=== PATIENT | female | born 1995 | race Hispanic/Latino ===

== ENCOUNTER 2020-07-23 10:42 | Inpatient (IN) | payer MEDICAID, OTHER ==
[2020-07-23] MEDS ORDERED: hydrALAZINE 20 MG/ML VIAL SLOW IVP PRN ×2 (10:54→12:25)
[2020-07-23 11:18] VITALS: BMI 28.3
--- NOTE | 2020-07-23 11:29 | ULT ---
US Biophysical Profile History: Oligohydramnios Comparison: None. Findings: Real-time grayscale, color and spectral analysis of the gravid uterus was performed. The biophysical profile score measures 6/8 scoring 2 for tone, 2 for breathing, 2 for fet al movements and 0 for amniotic fluid. Amniotic fluid index: 4.0 cm. The placenta is anterior/fundal. presentation is vertex. Impression: Biophysical profile score of 6/8 scoring 0 for amniotic fluid.
[2020-07-23 11:57] LABS: Amnisure Test No Membranes Rupture (No Rupture)
[2020-07-23 11:58] LABS: Amnisure Internal Control QC ACCEPTABLE (ACCEPTABLE)
[2020-07-23] MEDS ORDERED: Promethazine HCl 25 MG/ML VIAL IM PRN (12:25)
[2020-07-23] MEDS ORDERED: Acetaminophen 500 MG TAB PO PRN (12:25)
[2020-07-23] MEDS ORDERED: Ondansetron PF 4 MG/2 ML Vial IVP PRN (12:25)
--- NOTE | 2020-07-23 12:28 | PDOC.FPROB ---
FMR OB H&P: HPI - History of Present Illness Chief Complaint: Oligohydramnios in clinic Indentification: 24yo G1 @ 33wks by LMP/9.3wk sono. History of Present Illness: Patient is a 24 yo F @ 33.o wks who presents 2/2 low ROSA on clinic BPP. is complicated by class B pregestational diabetes. Patient reports that over the past week she has been having increased discharge. She has had episodes of clear fluid leakage that have soaked through her pants. She also reports increased white and green discharge over the same time period. She denies contractions and vaginal bleeding. She endorses movement. Primary Care Physician: BRETT Franklin FMR OB H&P: Current - Care : 1 Para: 0 Gestational age: 33.0 Due date: 09/10/2020 Dating Criteria: LMP/9.3wk sono - OB Labs Blood type: O RH: positive Antibody Screen: negative HIV: negative RPR: negative HepBsAg: negative Rubella: immune Gonorrhea: negative Chlamydia: negative Pap Smear: 01/17 NILM A1c: 5.2% 07/2020 GBS: unknown - Additional Ultrasound Additional: Hadlock 26.9% 07/18/2020 FMR OB H&P: History - Past Medical History PMH: Pre gestational Diabetes class B At goal - TELECOMM[employer] History [employer]LECOMM[employer]S PROFESSION[employer] History: pap smear NILM 01/2020 - Surgical History Sx History: none FMR OB H&P: Medications - Current Home Medications: Medication Instructions Recorded Confirmed Type Aspirin [Ecotrin] 81 mg PO DAILY 07/23/20 07/23/20 History Pnv No.95/Ferrous Fum/Folic AC 1 tab PO DAILY 07/23/20 07/23/20 History [ Caplet] Allergies/Adverse Reactions: Allergies Allergy/AdvReac Type Severity Reaction Status Date / Time No Known Allergies Allergy Verified 07/23/20 11:12 FMR OB H&P: ROS - Review of Systems General: denies: fever/chills, recent trauma Cardiovascular: denies: edema Respiratory: denies: cough, shortness of breath Gastrointestinal: reports: abdominal pain. denies: nausea, vomiting, diarrhea Genitourinary (Female): reports: incontinence, vaginal discharge. denies: vaginal pain, vaginal bleeding, contractions Musculoskeletal: denies: pain, stiffness Neurologic: denies: numbness, headache Integumentary: denies: rash, lesions Hematologic/Lymphatic: denies: prolonged or excessive bleeding, enlarged lymph nodes Psychological: denies: depression, anxiety FMR OB H&P: Vital Signs - Heart Tones Baseline: 150 Variability: moderate Acceleration: present Deceleration: absent Category: category 1 Portia contractions every: absent FMR OB H&P: Physical Exam - Physical Exam General: NAD, awake, alert and oriented HEENT: normocephalic and atraumatic, EOMI Heart: no edema General: no respiratory distress Abdomen: soft, gravid, non-tender Musculoskeletal: normal gait and station, FROM in all four extremities - Pelvic Exam Vulva: normal hair distribution, appropriate alyce stage, no masses, no lesions, no blood, normal rugae Cervix: no masses, no blood Deviation from normal: Copious amounts of white discharge with green tint SVE: c/t/h FMR OB H&P: Results - Labs Lab results: Laboratory Results - last 24 hr 07/23/20 11:36 Amnio Swab Test No Membranes Rupture FMR OB H&P: A/P Disposition: Will admit inpatient for oligohydramnios Discussion: Date/Time: 07/23/20 1224 sIUP @ 33.0 weeks - PNC care, PCP Rigoberto - history of low ROSA - declined genetic testing - growth U/S wnl, most recent showing Hadlock 27% - Was followed by M who signed off - NST qShift - obtain VP3, GC/CT given exam findings with discharge Oligohydramnios - Patient's history suspicious for ROM - sterile speculum exam shows no fluid leaking from cervix although hard to visualize with discharge, amniosure negative - BPP in clinic shows ROSA 4, MVP >2 cm - Repeat BPP - If ROSA is low, consider admission with steroid injection, IVF infusion, and possible antibiotics - Monitoring as above - repeat BPP in AM Pregestational DM - Continue home regimen of lispro 8 units with each meal, 35 u basal qhs - Most recent A1c 5.2 - ACHs Accuchecks This H&P was discussed with Dr. Betancourt and Dr. Fay who agree with the above documentation and plan. Addendum - Attending - Attending Attestation Date/Time: 07/23/20 1522 I personally evaluated the patient and discussed the management with Dr. Manzo. I agree with the History, Examination, Assessment and Plan documented above with any addition or exceptions noted below. 24 y.o. at 33.0 wks EGA /c Class B DM here for referral from [facility] for oligohydranios, discovered on mBPP performed there this a.m. and confirmed here with full BPP. No evidence of PPROM but vaginal d/c sent for analysis. Will admit for IVF and reeval ROSA in a.m., if rises to >5 cm, may be able to d/c with frequent ROSA eval's. If less, keep and reeval after steroids in. Will go ahead with 24 hour IV steroid prep in anticipation for likely .
[2020-07-23] MEDS: Betamet Acet/Betamet Na Ph 30 MG/5 ML VIAL IM SCH (12:45)
[2020-07-23] MEDS ORDERED: Dextrose 50% Abboject 50 ML SYRINGE SLOW IVP PRN (13:12)
[2020-07-23] MEDS ORDERED: Dextrose 5% in Water 1,000 ML IV PRN (13:12)
[2020-07-23] MEDS: HumaLOG 300 UNITS/3 ML VIAL SC SCH ×2 (14:55→19:16)
[2020-07-23] MEDS: Insulin Glargine 35 UNITS in Pre-Filled Syringe SC SCH (21:49)
--- NOTE | 2020-07-24 07:38 | PDOC.OBAPN ---
FMR OB AP PN: Sub - Interval History Hospital Day: 1 Chief Complaint: Sent from clinic for low ROSA Indentification: 24yo @ 33.1 wks (CHARO 09/10/20) Interval History: Doing well this morning. FMR OB AP PN: Obj - Maternal Vital signs: BP: 114/73 HR: 69 Wt: 75kg - Heart Tones Baseline: 130 Variability: moderate Acceleration: present Deceleration: absent FMR OB AP PN: Exam - Physical Exam General: NAD, awake, alert and oriented HEENT: normocephalic and atraumatic, MMM, grossly normal vision, grossly normal hearing Neck: supple, trachea midline Breast: symmetric Heart: RRR, normal S1/S2, no murmurs/rubs/gallops General: CTAB, no respiratory distress Abdomen: soft, gravid Musculoskeletal: normal gait and station, pulses present Skin: no rash, good tugor Lymphatic: no unusual bruising or bleeding, no purpura Psychiatric: intact recent and remote memory, good judgement and insight, normal mood and affect FMR OB AP PN: Data - Labs Lab results: Laboratory Results - last 24 hr 07/23/20 07/23/20 07/23/20 11:36 15:00 19:21 POC Glucose 85 105 H Amnio Swab Test No Membranes Rupture FMR OB AP PN: A/P - Problem List (1) Oligohydramnios antepartum Current Visit: Yes Status: Acute Code(s): O41.00X0 - OLIGOHYDRAMNIOS, UNSP TRIMESTER, NOT APPLICABLE OR UNSP (2) Pregestational diabetes mellitus, modified White class B Current Visit: Yes Status: Acute Code(s): O24.319 - UNSP PRE-EXISTING DIABETES IN , UNSP TRIMESTER (3) Toney gestation with first Current Visit: Yes Status: Acute Code(s): Z34.90 - ENCNTR FOR SUPRVSN OF NORMAL , UNSP, UNSP TRIMESTER Disposition: 24yo G1 admitted for evaluation of oligohydramnios. sIUP @ 33.1 weeks - PNC PCP Rigoberto - declined genetic testing - growth U/S wnl, most recent showing Hadlock 27% - Was followed by MFM who signed off Discharge - VP3 negative. - GC/CT pending Oligohydramnios - Sterile speculum exam showed no pooling, amnisure negative - BPP 07/23 showed an ROSA of 4. - Admitted for IV fluid hydration, steroids for lung maturity and repeat BPP this morning with umbilical artery dopplers. - Continuous monitoring. - Repeat amnisure today Pregestational DM - Continue home regimen of lispro 8 units with each meal, 35 u basal qhs - Most recent A1c 5.2 - ACHs Accuchecks - CC diet Discussion: Date/Time: 07/24/20 7136 This plan was discussed with Dr. Jacome who agrees with the above documentation and plan unless otherwise stated below. Signature: Hussain FISHMAN PGY2 Addendum - Attending - Attending Attestation Date/Time: 07/24/20 1225 I personally evaluated the patient and discussed the management with Dr. Fay I agree with the History, Examination, Assessment and Plan documented above with any addition or exceptions noted below. 24 yo female at 33.1 wks by LMP/9.3 wk sono CHARO: 09/10/20 PCP: Rigoberto [facility] patient Patient reports she is doing well. Denies LOF, vaginal bleeding, and vaginal discharge. +FM. Tolerating PO well. VS reviewed. NST reactive. BPP 6/8 (2 off for ROSA) No contractions 1. sIUP: IOB labs reviewed. NILM. STI screening negative. Level II sono reviewed. 3T negative. s/p Tdap. 2. Pregestational DM?: Dx during 1T screening due to family hx and metabolic syndrome. A1c was 6.4%. Home monitoring was initiated and found to be NOT at GOAL for . No proteinuria. No LVH. Level II sono WNL. Grossly normal ECHO. Tx: Diet --> metformin --> insulin A1c = 6.4% --> 5.5% --> 5.4% --> 5.2% --> 5.1% Concern insulin is too high due to low A1c values. Patient denies hypoglycemia episodes. Current insulin: Lantus 35 qhs. Lispro 8 TID. Glucose at goal during hospitalization and on steroid course. No adjustments made to insulin to cover steroids. 20.0 wks Hadlock 22%, MVP 4.4 cm 24.0 wks Hadlock 16%, MVP 4.5 cm 32.2 wks Hadlock 27%, ROSA 6.36 cm 3. Oligohydramnios: Unsure etiology at this time. ROSA < 2 cm. BPP /8. Placed on continuous monitoring. No decels. No contractions. Amnisure neg on 07/23. Negative speculum exam. Grade 1 to 2 placenta. Fundal location. Stomach and bladder full on bedside sono. UA Doppler at 50th%tile. Repeat amnisure today after recumbent positioning. Patient reports having to change undergarments the day before her 32.2 wk sono but has not noticed leakage otherwise. Denies sensation of loss of fluid. Has noticed increased discharge. Workup negative thus far. BMZ course started. Last dose today at 1400. Change to inpatient. Continue monitoring for at least 24 hours. Repeat bedside sono during AM rounds. Bi-weekly BPP. Ok to d/c for home monitoring if ROSA increases to 2 cm. Will delivery at 36 wks if able to d/c to home. Otherwise delivery based on day to day findings. 4. fam hx of DM 5. Metabolic syndrome 6. URI in 1T 7. Hx of STI in the past 8. TB risk: Needs to follow up with HD. Dispo: Continue monitoring with q 4 hour assessments today. 2nd dose BMZ at 1400. Change to inpatient. Bedside sono in AM. Continue IVFs. Repeat Amnisure. Trend glucose fasting and 2 hours pp. Markell
[2020-07-24] MEDS: Lactated Ringer's 1,000 ML IV SCH ×4 (07:51→18:47)
--- NOTE | 2020-07-24 08:55 | ULT ---
LIMITED OBSTETRICAL ULTRASOUND FOR BIOPHYSICAL PROFILE INDICATION: Oligohydramnios TECHNIQUE: Grayscale, M-mode Doppler, color Doppler and spectral Doppler images were obtained. Biophy sical profile was submitted by the electromechanical technician. Imaging is focused on the clinical indication. COMPARISON: Prior exam dated July 23, 2020 GESTATION: Number of gestations: Single. Presentation: Cephalic. heart rate: 137 bpm. Placental location: Fundal Previa: No evidence for previa. Cervical length: 2.93 cm without evidence of funneling ROSA: 2.8 cm. Biophysical profile: tone: 2 out of 2. breathin out of 2 movements: 2 out of 2 Amniotic fluid level: 0 out of 2. Spectral Doppler images were obtained of the umbilical artery at the level of the placenta, mid cord and insertion. At the center, the peak systolic flow was 24.9 cm/s with a pulsatility index of 0.74 and a resistive index of 0.51. The systolic diastolic ratio is 2.06. Mid cord the peak systol ic velocity was 47.4 cm/s. The pulsatility index was 0.87 with a resistive index of 0.61 and a systolic diastolic ratio of 2.56. At the insertion, the systolic velocity was 65.8 cm/s with a pulsatility index of 0.84, resistive index of 0.59 and a systolic diastolic ratio of 2.45 IMPRESSION: 1. Biophysical profile of 6 out of 8. 2. Oligohydramnios. 3. Umbilical artery Doppler appears within normal limits for estimated gestational age of 33 weeks an d 0 days.
[2020-07-24] MEDS ORDERED: Prenatal Vitamin 1 TAB PO SCH (09:00)
[2020-07-24] MEDS: HumaLOG 300 UNITS/3 ML VIAL SC SCH ×2 (10:11→14:37)
[2020-07-24 10:17] LABS: Hemoglobin A1c 5.1 % (4.0-6.0)
[2020-07-24 10:39] LABS: ALT (SGPT) 15 U/L (8-55); AST (SGOT) 14 U/L (5-34); Albumin 3.2 g/dL (3.5-5.0); Alkaline Phosphatase 127 U/L (40-110); Anion Gap 11 mmol/L (10-20); BUN (Urea Nitrogen) 10 mg/dL (7.0-18.7); Bilirubin, Total 0.2 mg/dL (0.2-1.2); Calc. Creatinine Clearance 167 mL/min (70-130); Calcium 9.2 mg/dL (7.8-10.44); Carbon Dioxide 23 mmol/L (22-29); Chloride 107 mmol/L (98-107); Estimated GFR-MDRD Greater than 90; Globulin 3.1 g/dL (2.4-3.5); Glucose 110 mg/dL (70-105); Potassium 3.8 mmol/L (3.5-5.1); Protein, Total 6.3 g/dL (6.0-8.3); Sodium 137 mmol/L (136-145)
--- NOTE | 2020-07-24 11:26 | PDOC.EVN ---
Event Note - Event Note Event Note: Bedside sono done on rounds did not reveal a DVP > 2cm. Discussed ultrasound results with patient. Umbilical artery doppler within 50th percentile. Will get A1c and CMP today. Repeat amnisure after patient has been on bedrest for >3 hours. She will receive 2nd dose of steroids today at 1400.
[2020-07-24] MEDS ORDERED: HumaLOG 300 UNITS/3 ML VIAL SC PRN ×2 (12:38)
[2020-07-24 12:43] LABS: Amnisure Test No Membranes Rupture (No Rupture)
[2020-07-24 12:44] LABS: Amnisure Internal Control QC ACCEPTABLE (ACCEPTABLE)
[2020-07-24 12:49] VITALS: BP 113/65; TEMP 98.2
[2020-07-24 13:27] LABS: SARS-CoV-2 MS2 Positive; SARS-CoV-2 N Gene Negative; SARS-CoV-2 S Gene Negative; SARS-CoV-2 by NAA Not Detected (NotDetected); SARS-CoV-2 orf1ab Negative
[2020-07-24] MEDS: Betamet Acet/Betamet Na Ph 30 MG/5 ML VIAL IM SCH (15:00)
--- NOTE | 2020-07-24 15:28 | PDOC.BPN ---
- Brief Progress Note Patient reports no acute concerns at this time and that she is feeling baby move as normal. Her most recent vitals included BP of 120/68 with HR of 79. UOP is 900 mL. We will obtain 2 hr pp accucheck-patient just finished eating lunch. ACHS check before lunch was 106. We will continue home insulin regimen at this time and do 2 hr pp and AM fasting accuchecks with goal <150. If >150, will do mild sliding scale as ordered. Will continue to monitor and reevaluate with changes.
--- NOTE | 2020-07-24 19:41 | PDOC.OBAPN ---
FMR OB AP PN: Sub - Interval History Chief Complaint: Sent from clinic for low ROSA Indentification: 24yo @ 33.1 wks (CHARO 09/10/20) Interval History: Doing well, resting comfortably in bed FMR OB AP PN: Obj - Maternal Vital signs: BP: 120/68 HR: 79 RR: 18 Tmax: 98.5 - Urine output I&O: I: s/p 4L IVF UO: 1550 between 1600 and 1900 - Heart Tones Baseline: 140 Variability: moderate Acceleration: present Deceleration: variable FMR OB AP PN: Exam - Physical Exam General: NAD HEENT: grossly normal vision, grossly normal hearing General: no respiratory distress Abdomen: gravid, non-tender Neurological: cranial nerves II through XII intact, sensation to pain,touch and proprioception grossly normal FMR OB AP PN: Data - Labs Lab results: Laboratory Results - last 24 hr 07/23/20 07/24/20 07/24/20 12:40 09:12 09:56 Sodium 137 Potassium 3.8 Chloride 107 Carbon Dioxide 23 Anion Gap 11 BUN 10 Creatinine 0.62 Estimated GFR (MDRD) Greater than 90 Glucose 110 H POC Glucose 96 Hemoglobin A1c Calcium 9.2 Total Bilirubin 0.2 AST 14 ALT 15 Alkaline Phosphatase 127 H Serum Total Protein 6.3 Albumin 3.2 L Globulin 3.1 Albumin/Globulin Ratio 1.0 L Amnio Swab Test SARS-CoV-2 (PCR) Not Detected 07/24/20 07/24/20 07/24/20 09:56 12:25 12:26 Sodium Potassium Chloride Carbon Dioxide Anion Gap BUN Creatinine Estimated GFR (MDRD) Glucose POC Glucose 142 H Hemoglobin A1c 5.1 Calcium Total Bilirubin AST ALT Alkaline Phosphatase Serum Total Protein Albumin Globulin Albumin/Globulin Ratio Amnio Swab Test No Membranes Rupture SARS-CoV-2 (PCR) 07/24/20 07/24/20 14:35 17:11 Sodium Potassium Chloride Carbon Dioxide Anion Gap BUN Creatinine Estimated GFR (MDRD) Glucose POC Glucose 107 H 114 H Hemoglobin A1c Calcium Total Bilirubin AST ALT Alkaline Phosphatase Serum Total Protein Albumin Globulin Albumin/Globulin Ratio Amnio Swab Test SARS-CoV-2 (PCR) FMR OB AP PN: A/P Discussion: 24 yo @ 33.1 weeks admitted for evaluation of oligohydramnios. sIUP - s/p steroids x2 - declined genetic testing - FHT: baseline of 140, moderate variability, 2 variable decels Oligohydramnios - amnisure negative x2 - s/p 4 L IV fluids - ROSA of 6.68, MVP 3.52 - will stop fluids and monitoring at this time, encourage PO intake - ROSA ordered for tomorrow morning Pregestational DM - 2 Hr PP sugar after dinner tonight - Will continue home regimen with goal sugar <150 - Most recent A1c 5.2 PCP: Rigoberto [facility]
[2020-07-24 21:29] LABS: Chlamydia by PCR Not Detected (NotDetected); GC by PCR Not Detected (NotDetected)
[2020-07-24] MEDS: Insulin Glargine 35 UNITS in Pre-Filled Syringe SC SCH (22:18)
[2020-07-25] MEDS: HumaLOG 300 UNITS/3 ML VIAL SC SCH ×2 (06:08→08:30)
[2020-07-25 06:18] LABS: #Monocytes 0.3 thou/uL (0.11-0.59); #Neutrophils 13.8 thou/uL (1.40-6.50); %Basophils 0.1 % (0.0-1.0); %Eosinophils 0.1 % (0.0-10.0); %Lymphocytes 12.6 % (21.0-51.0); %Monocytes 1.9 % (0.0-10.0); %Neutrophils 85.4 % (42.0-75.0); Hemoglobin 11.9 g/dL (12.0-16.0); Mean Corpuscular HGB CONC 32.6 g/dL (32.0-36.0); Mean Corpuscular Hemoglobin 29.5 pg (27.0-31.0); Mean Corpuscular Volume 90.6 fL (78.0-98.0); Platelet Count 183 thou/uL (130-400); RBC Distribution Width 12.7 % (11.5-14.5); Red Blood Cell (RBC) Count 4.02 mill/uL (4.20-5.40); White Blood Cell (WBC) Count 16.1 thou/uL (4.8-10.8)
--- NOTE | 2020-07-25 06:31 | PDOC.OBAPN ---
FMR OB AP PN: Sub - Interval History Hospital Day: 2 Chief Complaint: Low ROSA Indentification: 24yo G1 @ 33.2wks EGA by LMP/9.3wk sono FMR OB AP PN: Obj - Maternal Vital signs: BP: 112/69 HR: 62 Resp: 18 Temp: 98.5F FMR OB AP PN: Exam - Physical Exam General: NAD, awake, alert and oriented HEENT: normocephalic and atraumatic, MMM, grossly normal vision, grossly normal hearing Neck: supple, trachea midline Heart: RRR, normal S1/S2 General: CTAB, no respiratory distress, good air movement Abdomen: soft, gravid, non-tender Musculoskeletal: normal gait and station Skin: no rash, good tugor Lymphatic: no unusual bruising or bleeding Psychiatric: intact recent and remote memory, good judgement and insight FMR OB AP PN: Data - Labs Lab results: Laboratory Results - last 24 hr 07/23/20 07/23/20 07/24/20 12:15 12:40 09:12 WBC RBC Hgb Hct MCV MCH MCHC RDW Plt Count MPV Neutrophils % Lymphocytes % Monocytes % Eosinophils % Basophils % Neutrophils # Lymphocytes # Monocytes # Eosinophils # Basophils # Sodium Potassium Chloride Carbon Dioxide Anion Gap BUN Creatinine Estimated GFR (MDRD) Glucose POC Glucose 96 Hemoglobin A1c Calcium Total Bilirubin AST ALT Alkaline Phosphatase Serum Total Protein Albumin Globulin Albumin/Globulin Ratio Amnio Swab Test Chlamydia DNA (PCR) Not Detected Chlamydia/GC Spec Info SARS-CoV-2 (PCR) Not Detected N gonorrhoeae DNA (PCR) Not Detected 07/24/20 07/24/20 07/24/20 09:56 09:56 12:25 WBC RBC Hgb Hct MCV MCH MCHC RDW Plt Count MPV Neutrophils % Lymphocytes % Monocytes % Eosinophils % Basophils % Neutrophils # Lymphocytes # Monocytes # Eosinophils # Basophils # Sodium 137 Potassium 3.8 Chloride 107 Carbon Dioxide 23 Anion Gap 11 BUN 10 Creatinine 0.62 Estimated GFR (MDRD) Greater than 90 Glucose 110 H POC Glucose 142 H Hemoglobin A1c 5.1 Calcium 9.2 Total Bilirubin 0.2 AST 14 ALT 15 Alkaline Phosphatase 127 H Serum Total Protein 6.3 Albumin 3.2 L Globulin 3.1 Albumin/Globulin Ratio 1.0 L Amnio Swab Test Chlamydia DNA (PCR) Chlamydia/GC Spec Info SARS-CoV-2 (PCR) N gonorrhoeae DNA (PCR) 07/24/20 07/24/20 07/24/20 12:26 14:35 17:11 WBC RBC Hgb Hct MCV MCH MCHC RDW Plt Count MPV Neutrophils % Lymphocytes % Monocytes % Eosinophils % Basophils % Neutrophils # Lymphocytes # Monocytes # Eosinophils # Basophils # Sodium Potassium Chloride Carbon Dioxide Anion Gap BUN Creatinine Estimated GFR (MDRD) Glucose POC Glucose 107 H 114 H Hemoglobin A1c Calcium Total Bilirubin AST ALT Alkaline Phosphatase Serum Total Protein Albumin Globulin Albumin/Globulin Ratio Amnio Swab Test No Membranes Rupture Chlamydia DNA (PCR) Chlamydia/GC Spec Info SARS-CoV-2 (PCR) N gonorrhoeae DNA (PCR) 07/24/20 07/25/20 20:50 05:51 WBC 16.1 H RBC 4.02 L Hgb 11.9 L Hct 36.4 MCV 90.6 MCH 29.5 MCHC 32.6 RDW 12.7 Plt Count 183 MPV 11.0 H Neutrophils % 85.4 H Lymphocytes % 12.6 L Monocytes % 1.9 Eosinophils % 0.1 Basophils % 0.1 Neutrophils # 13.8 H Lymphocytes # 2.0 Monocytes # 0.3 Eosinophils # 0.0 Basophils # 0.0 Sodium Potassium Chloride Carbon Dioxide Anion Gap BUN Creatinine Estimated GFR (MDRD) Glucose POC Glucose 218 H Hemoglobin A1c Calcium Total Bilirubin AST ALT Alkaline Phosphatase Serum Total Protein Albumin Globulin Albumin/Globulin Ratio Amnio Swab Test Chlamydia DNA (PCR) Chlamydia/GC Spec Info SARS-CoV-2 (PCR) N gonorrhoeae DNA (PCR) FMR OB AP PN: A/P - Problem List (1) Oligohydramnios antepartum Status: Acute Code(s): O41.00X0 - OLIGOHYDRAMNIOS, UNSP TRIMESTER, NOT APPLICABLE OR UNSP (2) Pregestational diabetes mellitus, modified White class B Status: Acute Code(s): O24.319 - UNSP PRE-EXISTING DIABETES IN , UNSP TRIMESTER (3) Toney gestation with first Status: Acute Code(s): Z34.90 - ENCNTR FOR SUPRVSN OF NORMAL , UNSP, UNSP TRIMESTER Disposition: 24yo G1 admitted for evaluation of oligohydramnios. sIUP @ 33.2 weeks - [facility] PCP Rigoberto - declined genetic testing - growth U/S wnl, most recent showing Hadlock 27% - Was followed by MFM who signed off Discharge - VP3 negative. - GC/CT negative Oligohydramnios - Sterile speculum exam showed no pooling, amnisure negative x2 - BPP 07/23 showed an ROSA of 4. Bedside sono 07/24 PM showed an ROSA of 6.68, MVP 3.52. She was taken off of IV fluids. - S/P 2 doses of betamethasone. - Plan for delivery @ 36 weeks, unless indicated sooner. - We will monitor ROSA today while off fluids and consider d/c home. Pregestational DM - Continue home regimen of lispro 8 units with each meal, 35 u basal qhs, will likely need to adjust this regimen down once the steroids wear off d/t normal glucose readings while on steroids (which should elevate glucose) - A1c 5.1% - ACHs Accuchecks - CC diet - D/c home with plan to f/u in [facility] on Thursday and MFM early next week Discussion: Date/Time: 07/25/20 0658 Hussain FISHMAN PGY2 This H&P was discussed with Dr. Jacome who agree with the above documentation and plan. Addendum - Attending - Attending Attestation Date/Time: 07/25/20 1213 I personally evaluated the patient and discussed the management with Dr. Fay I agree with the History, Examination, Assessment and Plan documented above with any addition or exceptions noted below. 24 yo female at 33.2 wks admitted for oligohydramnios, idiopathic. HD#2 CHARO: 09/10/20 PCP: Rigoberto [facility] Patient doing well. Reports movement but feels moving less than normal. NST reactive. ROSA improved to 5.2 cm (based on images and measurements from radiology). No LOF, ctx, VB. Discussed likely cause related to hypoglycemia and hydration. Compared patient's glucometer to hospital. Patient's monitor was falsely elevated which would be consistent with hypoglycemia as indicated by low A1c of 5%. Patient has also not required any correction to glucose readings while on steroid burst (218 was elevated to due nursing staff not provided short acting prior to meal). Findings and etiology discussed with patient and FOB. Questions answered. Ok to d/c to home. Follow up with [facility] on Thursday at 1000 to adjust insulin dose to less than previous. Joe will be s/p day #5 from BMZ dose. MFM referral placed and to have appointment scheduled for next week. Will need weekly testing with ROSA measurement. Q 2 wk growth. UA Dopplers if FGR. If remains, oligo delivery at 36 to 37 wks. If not, delivery at 38 to 39 wks. FKC twice daily. ER precautions discussed. Amnisure negative x2. No evidence of ROM throughout stay. GC/Ct/VP3 negative. Markell
[2020-07-25 06:40] LABS: ALT (SGPT) 13 U/L (8-55); AST (SGOT) 13 U/L (5-34); Albumin 3.1 g/dL (3.5-5.0); Alkaline Phosphatase 115 U/L (40-110); Anion Gap 14 mmol/L (10-20); BUN (Urea Nitrogen) 14 mg/dL (7.0-18.7); Bilirubin, Total 0.2 mg/dL (0.2-1.2); Calc. Creatinine Clearance 164 mL/min (70-130); Calcium 8.7 mg/dL (7.8-10.44); Carbon Dioxide 21 mmol/L (22-29); Chloride 108 mmol/L (98-107); Estimated GFR-MDRD Greater than 90; Globulin 2.9 g/dL (2.4-3.5); Glucose 121 mg/dL (70-105); Sodium 139 mmol/L (136-145)
--- NOTE | 2020-07-25 10:33 | ULT ---
ULTRASOUND OBSTETRICAL LIMITD: DATE: 07/05/2020. HISTORY: A 24-year-old female with oligohydramnios. Evaluate ROSA. FINDINGS: ROSA: 4.5 cm heart rate: 152 b.p.m. position: Vertex. Placenta: Posterior. heart rate: 152 b.p.m. bladder, 4-chamber heart, 3-vessel cord, and cord insertion are demonstrated. IMPRESSION: 1. Oligohydramnios in 3rd trimester. 2. ROSA 4.5 cm. POS: [facility]
--- NOTE | 2020-07-25 17:15 | ULT ---
LIMITED OBSTETRICAL ULTRASOUND FOR BIOPHYSICAL PROFILE INDICATION: Oligohydramnios TECHNIQUE: Grayscale, M-mode Doppler, color Doppler and spectral Doppler images were obtained. Biophy sical profile was submitted by the biomass plant technician. Imaging is focused on the clinical indication. COMPARISON: Prior exam dated July 23, 2020 GESTATION: Number of gestations: Single. Presentation: Cephalic. heart rate: 137 bpm. Placental location: Fundal Previa: No evidence for previa. Cervical length: 2.93 cm without evidence of funneling ORSA: 2.8 cm. Biophysical profile: tone: 2 out of 2. breathin out of 2 movements: 2 out of 2 Amniotic fluid level: 0 out of 2. Spectral Doppler images were obtained of the umbilical artery at the level of the placenta, mid cord and insertion. At the center, the peak systolic flow was 24.9 cm/s with a pulsatility index of 0.74 and a resistive index of 0.51. The systolic diastolic ratio is 2.06. Mid cord the peak systol ic velocity was 47.4 cm/s. The pulsatility index was 0.87 with a resistive index of 0.61 and a systolic diastolic ratio of 2.56. At the insertion, the systolic velocity was 65.8 cm/s with a pulsatility index of 0.84, resistive index of 0.59 and a systolic diastolic ratio of 2.45 IMPRESSION: 1. Biophysical profile of 6 out of 8. 2. Oligohydramnios. 3. Umbilical artery Doppler appears within normal limits for estimated gestational age of 33 weeks an d 0 days. Transcribed Date/Time: 07/25/2020 5:15 PM
== END 2020-07-25 10:07 | disposition home or self-care (01) | DRG 832 ==
LOC: L&D/OP 10:42 → L&D 12:26
PROVIDERS: ADMIT Family Medicine; ATTEND Family Medicine
DX: O41.03X0 Oligohydramnios, third trimester, not applicable or unspecified (principal); O24.313 Unspecified pre-existing diabetes mellitus in pregnancy, third trimester; Z3A.33 33 weeks gestation of pregnancy; Z79.82 Long term (current) use of aspirin; E11.649 Type 2 diabetes mellitus with hypoglycemia without coma; Z20.828 Contact with and (suspected) exposure to other viral communicable diseases
CPT/HCPCS: 36415; 36416; 76815; 76819; 80053; 83036; 84112; 85025; 87480; 87491; 87510; 87591; 87635; 87660; 93975; 99285; J0702; J1815; U0003

== ENCOUNTER 2020-07-29 00:23 | Day surgery (SDC) | payer MEDICAID ==
[2020-07-29 00:51] VITALS: BP 125/77; TEMP 98.9; BMI 30.9
--- NOTE | 2020-07-29 01:00 | PDOC.FPROB ---
FMR OB H&P: HPI - History of Present Illness Chief Complaint: decreased movement History of Present Illness: Pt is a 24yo @ 33.6 wks by LMP/9.3wk sono who presents for evaluation of decreased FM. She states that when she was laying in bed tonight she could feel the baby, but she seemed to be moving less than normal. She denies any LOF, vaginal bleeding or pain, contractions. C/o mild lower abdominal pain that comes and goes. No fever, N/V, diarrhea. Eating and drinking as normal. Has a hx of pregestational diabetes treated with insulin. Her FBG today was 100. She complains of burning with urination. She has close f/u outpatient due to hx of oligohydramnios, with recent hospitalization. Was seen outpatient yesterday and had US, results unknown. Primary Care Physician: JYOTSNA Franklin FMR OB H&P: Current - Care : 1 Para: 0 Gestational age: 33.6 Due date: 09/10/2020 Dating Criteria: LMP/9.3 wk sono Course/Complications: pregestational diabetes - OB Labs Blood type: O RH: positive Antibody Screen: negative HIV: negative RPR: negative HepBsAg: negative Rubella: immune Gonorrhea: negative Chlamydia: negative Pap Smear: 01/17 NILM A1c: 5.2% 07/2020 GBS: unknown - Additional Ultrasound Additional: Hadlock 26.9% 07/18/2020 FMR OB H&P: History - Past Medical History PMH: pregestational diabetes, class B at goal - Surgical History Sx History: none - Social History Social History: no T/A/D FMR OB H&P: Medications - Current Home Medications: Medication Instructions Recorded Confirmed Type Aspirin [Ecotrin Low Strength] 81 mg PO DAILY 07/23/20 07/29/20 History Pnv No.95/Ferrous Fum/Folic AC 1 tab PO DAILY 07/23/20 07/29/20 History [ Caplet] HumaLOG [HumaLOG Vial] 8 units SC AC vial 07/25/20 07/29/20 Rx Insulin Glargine [Lantus Vial] 25 units SC HS 07/29/20 07/29/20 History Allergies/Adverse Reactions: Allergies Allergy/AdvReac Type Severity Reaction Status Date / Time No Known Allergies Allergy Verified 07/29/20 00:38 FMR OB H&P: ROS - Review of Systems General: reports: fatigue. denies: fever/chills Eyes: denies: vision changes, scotomas ENT: denies: nasal congestion, rhinorrhea, sore throat Cardiovascular: denies: chest pain, palpitation, edema Respiratory: denies: cough, congestion, shortness of breath Gastrointestinal: denies: abdominal pain, nausea, vomiting, diarrhea Genitourinary (Female): reports: dysuria. denies: vaginal pain, vaginal bleeding, contractions Musculoskeletal: denies: pain, tenderness Neurologic: denies: numbness, headache Integumentary: denies: itching Breast: denies: pain/tenderness Endocrine: denies: polydipsia, polyuria Hematologic/Lymphatic: denies: prolonged or excessive bleeding FMR OB H&P: Vital Signs - Maternal Vital signs: Vital Signs - First Documented Temp Pulse Resp BP 98.9 F 70 18 125/77 07/29/20 00:35 07/29/20 00:35 07/29/20 00:35 07/29/20 00:35 - Heart Tones Baseline: 140 Variability: moderate Acceleration: present Deceleration: absent Category: category 1 FMR OB H&P: Physical Exam - Physical Exam General: NAD, awake, alert and oriented HEENT: normocephalic and atraumatic, no scleral icterus, grossly normal vision, grossly normal hearing Neck: supple, FROM Heart: RRR, normal S1/S2, no murmurs/rubs/gallops, pulses present, no edema General: CTAB, no respiratory distress, no wheezing Abdomen: soft, gravid, bowel sound present Deviation from normal: mild tenderness to palpation of lower abdomen Musculoskeletal: normal gait and station, pulses present Neurological: no focal deficit Skin: capillary refill <2 seconds, no jaundice Psychiatric: intact recent and remote memory, normal mood and affect FMR OB H&P: Results - Labs Lab results: UA: normal FMR OB H&P: A/P Discussion: Date/Time: 07/29/20 0100 #sIUP -c/o decreased FM, likely due to a sleep cycle; NST reactive -FHT: Cat 1 140/mod tamiko/+accels, no decels -c/o dysuria, UA normal -discharged home, continue routine outpatient f/u #hx of oligohydramnios -released from hospital on 07/25, evaluated, d/c home with close outpatient f/u -s/p 2 doses betamethasone -continue routine outpatient f/u #pregestational diabetes -most recent A1c 5.2 -continue home meds and accuchecks This H&P was discussed with Dr. Franklin and Dr. Perera who agree with the above documentation and plan.
[2020-07-29] MEDS ORDERED: hydrALAZINE 20 MG/ML VIAL SLOW IVP PRN (01:37)
--- NOTE | 2020-07-29 02:16 | PDOC.BPN ---
- Brief Progress Note Encounter Date: 07/29/20 Encounter Time: 02:10 I have seen the patient at bedside and I have reviewed the case with Dr Ogden. WE will check UA for possible UTI. NST is reactive. She has a HX of "low fluid" on sono but last sono was yesterday at the [facility] and was cleared for continued F/U
[2020-07-29 02:31] LABS: Bacteria/HPF None Seen HPF (None Seen); Bilirubin Negative (Negative); Blood, Urine Negative (Negative); Clarity Clear (Clear); Glucose, Urine (Dipstick) Normal (Negative); Ketone, Urine Negative (Negative); Leukocyte Negative Leu/uL (Negative); Nitrite Negative (Negative); Protein, Urine (Dipstick) Negative (Neg-Trace); RBC/HPF None Seen HPF (0-3); Squamous Epithelial None Seen HPF (0-3); Urobilinogen Normal mg/dL (Less than 2); WBC/HPF None Seen HPF (0-3)
[2020-07-29 02:36] LABS: Urine Culture Reflex No No
== END 2020-07-29 02:55 | disposition home or self-care (01) ==
LOC: L&D/OP 00:23
PROVIDERS: ATTEND Obstetrics & Gynecology
DX: O36.8130 Decreased fetal movements, third trimester, not applicable or unspecified (principal); O24.313 Unspecified pre-existing diabetes mellitus in pregnancy, third trimester; E11.9 Type 2 diabetes mellitus without complications; Z3A.33 33 weeks gestation of pregnancy; Z79.4 Long term (current) use of insulin; Z79.82 Long term (current) use of aspirin
CPT/HCPCS: 51701; 81001; 99283

== ENCOUNTER 2020-07-30 17:51 | Inpatient (IN) | payer MEDICAID, OTHER ==
[~2020-07-30 17:51] MED LIST: Penicillin G Potassium 5 MILL.UNITS in Sodium Chloride 0.9% 100 ML IVPB SCH
[2020-07-30] MEDS ORDERED: NS / Oxytocin 40 units/1000ml 1,000 ML IV PRN (18:28)
[2020-07-30] MEDS ORDERED: Lidocaine 1% (PF) 30 ML VIAL SC PRN (18:28)
[2020-07-30] MEDS ORDERED: Promethazine HCl 25 MG/ML VIAL IM PRN (18:28)
[2020-07-30] MEDS ORDERED: Ondansetron PF 4 MG/2 ML Vial IVP PRN (18:28)
[2020-07-30] MEDS ORDERED: NS w/ Oxytocin 10 units 500 ML IV SCH (18:30)
[2020-07-30] MEDS: Lactated Ringer's 1,000 ML IV SCH (18:49)
--- NOTE | 2020-07-30 18:49 | PDOC.FPROB ---
FMR OB H&P: HPI - History of Present Illness Chief Complaint: mIOL History of Present Illness: Pt is a 24 yo @ 34.0 wks by LMP/9.3 wk sono who presents for mIOL due to oligohydramnios and IUGR. She was seen by MFM today for routine f/u of oligo and was found to have IUGR, hadlock 3%. Was seen in our hospital from 07/23-07/25 for evaluation of oligohydramnios. BPP on 07/23 showed an ROSA of 4. Bedside sono 07/24 PM showed an ROSA of 6.68, DVP 3.52. She was given 2 doses of betamethasone. Tod ay she states she can feel baby moving. Denies LOF, VB, ctx or pain. She has a hx of pregestational DM, class B, controlled on insulin. Primary Care Physician: JYOTSNA Franklin FMR OB H&P: Current - Care : 1 Para: 0 Gestational age: 34.0 wks Due date: 09/10/20 Dating Criteria: LMP/ 9.3wk sono Course/Complications: pregestational diabetes, class B - OB Labs Blood type: O RH: positive Antibody Screen: negative HIV: negative RPR: negative HepBsAg: negative Rubella: immune Gonorrhea: negative Chlamydia: negative A1c: 5.2% on 07/2020 GBS: unknown - Additional Ultrasound Additional: Hadlock 27% on 07/18/20 FMR OB H&P: History - Past Medical History PMH: pregestational diabetes, class B - OB History OB History: G1PO - Surgical History Sx History: none - Social History Social History: no T/A/D - Family History Family History: parents- DM FMR OB H&P: Medications - Current Home Medications: Medication Instructions Recorded Confirmed Type Aspirin [Ecotrin Low Strength] 81 mg PO DAILY 07/23/20 07/29/20 History Pnv No.95/Ferrous Fum/Folic AC 1 tab PO DAILY 07/23/20 07/29/20 History [ Caplet] HumaLOG [HumaLOG Vial] 8 units SC AC vial 07/25/20 07/29/20 Rx Insulin Glargine [Lantus Vial] 25 units SC HS 09/27/20 09/27/20 History Allergies/Adverse Reactions: Allergies Allergy/AdvReac Type Severity Reaction Status Date / Time No Known Allergies Allergy Verified 07/30/20 20:22 FMR OB H&P: ROS - Review of Systems General: denies: fever/chills Eyes: denies: vision changes, scotomas ENT: denies: nasal congestion, rhinorrhea Cardiovascular: denies: chest pain, edema Respiratory: denies: cough, congestion Gastrointestinal: reports: abdominal pain. denies: nausea, vomiting, diarrhea Genitourinary (Female): denies: vaginal discharge, vaginal pain, vaginal bleeding, contractions Musculoskeletal: denies: pain, tenderness Neurologic: denies: syncope, headache Integumentary: denies: itching, rash Endocrine: denies: polydipsia, polyuria Hematologic/Lymphatic: denies: prolonged or excessive bleeding FMR OB H&P: Vital Signs - Heart Tones Baseline: 140 Variability: moderate Acceleration: present Deceleration: absent Category: category 1 FMR OB H&P: Physical Exam - Physical Exam General: NAD, awake, alert and oriented HEENT: normocephalic and atraumatic, no scleral icterus, grossly normal vision, grossly normal hearing Neck: supple, FROM Heart: RRR, normal S1/S2, no murmurs/rubs/gallops General: CTAB, no respiratory distress Abdomen: soft, gravid, bowel sound present Musculoskeletal: normal gait and station, pulses present Neurological: no focal deficit Skin: no rash, capillary refill <2 seconds, no jaundice Lymphatic: no unusual bruising or bleeding Psychiatric: intact recent and remote memory, normal mood and affect - Pelvic Exam Vulva: normal hair distribution, no discharge, no blood SVE: 1-50/-1 Adler score: 4 Membranes: intact FMR OB H&P: A/P Discussion: Date/Time: 07/30/20 1849 #mIOL 2/2 oligohydramnios and IUGR -history of low ROSA, MFM today found IUGR- hadlock 3%, recommended IOL -SVE 1-50/-1, posterior, firm, Adler of 4 -will start cytotec, recheck in 3-4 hours -patient is unsure if she would like an epidural -cephalic on bedside US #, 34wks -recent hospitalization given 2 doses betamethasone -GBS unknown, will give GBS ppx #sIUP -FHT: Cat 1 140/mod tamiko/+accels, no decels; no ctx -NST qShift -LR@125ml/hr #pregestational diabetes -most recent A1c 5.2, takes 8u insulin with meals and 25u lantus at bedtime -will continue home meds -accucheck q4h latent labor, q1h active labor Code: Full PCP: JYOTSNA Franklin IVF: LR @ 125ml/hr Diet: NPO w/ ice chips Dispo: Admit to L&D, mIOL, LOS>48 hrs. This H&P was discussed with Dr. Franklin and Dr. Betancourt who agree with the above documentation and plan.
[2020-07-30 19:08] LABS: Hemoglobin 13.9 g/dL (12.0-16.0); Mean Corpuscular HGB CONC 34.3 g/dL (32.0-36.0); Mean Corpuscular Hemoglobin 30.5 pg (27.0-31.0); Mean Corpuscular Volume 88.7 fL (78.0-98.0); Mean Platelet Volume 11.5 fL (7.4-10.4); Platelet Count 179 thou/uL (130-400); RBC Distribution Width 12.5 % (11.5-14.5); Red Blood Cell (RBC) Count 4.56 mill/uL (4.20-5.40); White Blood Cell (WBC) Count 10.7 thou/uL (4.8-10.8)
[2020-07-30] MEDS ORDERED: Dextrose 50% Abboject 50 ML SYRINGE SLOW IVP PRN (19:36)
[2020-07-30] MEDS ORDERED: Dextrose 5% in Water 1,000 ML IV PRN (19:36)
[2020-07-30] MEDS ORDERED: HumaLOG 300 UNITS/3 ML VIAL SC SCH (19:45)
[2020-07-30 19:49] LABS: HBSAg Index 0.19 S/CO (0-0.99); Hep B Surf Ag Non-Reactive S/CO (NonReactive); Syphilis Antibody Nonreactive (Nonreactive); Syphilis Antibody Index 0.03 S/CO (<1.00 Non-Reactive)
[2020-07-30 20:36] VITALS: BMI 28.8
[2020-07-30] MEDS: Misoprostol 100 MCG TAB VAG SCH (21:22)
[2020-07-30] MEDS ORDERED: Insulin Glargine 25 UNITS in Pre-Filled Syringe 1 EACH SC SCH (22:30)
[2020-07-31] MEDS: Penicillin G 2.5 MILL.units 2.5 MILL.UNITS in Premix Bag 1 BAG IVPB SCH ×6 (01:37→22:46)
--- NOTE | 2020-07-31 02:41 | PDOC.LDPN ---
Labor & Delivery Progress Note - Subjective Subjective: comfortable - Objective Vital signs reviewed and normal: yes General: NAD SVE: 12/27/-2 FHT: category 1 [place] contractions every: 3-5 min Procedures: cook balloon placed -: #mIOL 2/ oligohydramnios and IUGR -history of low ROSA, MFM today found IUGR- hadlock 3%, recommended IOL -SVE 12/27/-2, anterior, soft -Cook balloon placed w/ 40ml in uterine and vaginal balloon. R/B/A discussed before placement. Pt tolerated placement, will monitor FHT 30 min, if continues to be Cat 1, will add 40ml to each balloon #, 34wks -recent hospitalization given 2 doses betamethasone -GBS unknown, will give GBS ppx #sIUP -FHT: Cat 1 140/mod tamiko/+accels, no decels; no ctx -NST qShift -LR@125ml/hr #pregestational diabetes -most recent A1c 5.2, takes 8u insulin with meals and 25u lantus at bedtime -will continue home meds -accucheck q4h latent labor, q1h active labor
[2020-07-31] MEDS: Butorphanol Tartrate 1 MG/ML VIAL SLOW IVP PRN ×2 (03:39→19:39)
[2020-07-31] MEDS: Lactated Ringer's 1,000 ML IV SCH ×2 (04:48→18:38)
[2020-07-31] MEDS: Misoprostol 100 MCG TAB VAG SCH ×5 (08:09→22:21)
--- NOTE | 2020-07-31 11:16 | PDOC.LDPN ---
Labor & Delivery Progress Note - Subjective Subjective: comfortable (resting comfortably) - Objective Vital signs reviewed and normal: yes (BPs 150s/90s) General: NAD, resting, breathing through contractions Uterine fundus: non tender FHT: category 1, variability present [place] contractions every: 1-4min Procedures: balloon placed at 0200 on 07/31 AROM: clear fluid Resuscitative measures: maternal IV fluids Plan: continue plan of care -: #mIOL 2/2 oligohydramnios and IUGR History of low ROSA, MFM found IUGR- hadlock 3%, recommended IOL on 07/30 - SVE 12/27/-2, anterior, soft @ 0230 - Cook balloon placed @ 0230 w/ 80ml in uterine and vaginal balloon. R/B/A discussed before placement. - Started pitocin around 0830, continues to be cat 1 strip, CTX q 1-4min. - Will continue to monitor BPs - Does not desire epidural at this time, but would like to think about it #, 34wks - recent hospitalization given 2 doses betamethasone - GBS unknown, will give GBS ppx #sIUP - FHT: Cat 1 140/mod tamiko/+accels, no decels; no ctx - NST qShift - LR@125ml/hr #Pregestational diabetes - most recent A1c 5.2, takes 8u insulin with meals and 25u lantus at bedtime - will continue home meds - accuchecks changed to q2hr now that pit has been started. Sugars have been well controlled. No hypoglycemic episodes. Case discussed with Dr. Verduzco
[2020-07-31 15:03] LABS: SARS-CoV-2 MS2 Positive; SARS-CoV-2 N Gene Negative; SARS-CoV-2 S Gene Negative; SARS-CoV-2 by NAA Not Detected (NotDetected); SARS-CoV-2 orf1ab Negative
--- NOTE | 2020-07-31 15:19 | PDOC.LDPN ---
Labor & Delivery Progress Note - Subjective Subjective: comfortable - Objective Vital signs reviewed and normal: yes General: NAD Uterine fundus: non tender SVE: 4-/-2 FHT: category 1 [place] contractions every: ~q4 mins, irregular Plan: continue plan of care, pitocin for augmentation -: #mIOL / oligohydramnios and IUGR History of low ROSA, MFM found IUGR- hadlock 3%, recommended IOL on 07/30 - SVE 4-/-2, soft @ 1500, 12/27/2, anterior, soft @ 0230 - Cook balloon removed @ 1500 - Pitocin started @ 0230, now @ 6, cat 1 strip, irregular ctx - Will get labs for preE, (CMP, urine, CBC, uric acid) - Does not desire epidural at this time, but would like to think about it #, 34wks - recent hospitalization given 2 doses betamethasone - GBS unknown, will give GBS ppx #sIUP - FHT: Cat 1 140/mod tamiko/+accels, no decels; irregular ctx - NST qShift - LR@125ml/hr #Pregestational diabetes - most recent A1c 5.2, takes 8u insulin with meals and 25u lantus at bedtime - will continue home meds - accuchecks changed to q2hr now that pit has been started. Sugars have been well controlled. No hypoglycemic episodes. Case discussed with Dr. Verduzco
[2020-07-31 15:47] LABS: #Basophils 0.1 thou/uL (0.0-0.2); #Lymphocytes 3.5 thou/uL (1.20-3.40); #Monocytes 0.6 thou/uL (0.11-0.59); #Neutrophils 11.1 thou/uL (1.40-6.50); %Basophils 0.6 % (0.0-1.0); %Eosinophils 0.2 % (0.0-10.0); %Monocytes 3.6 % (0.0-10.0); %Neutrophils 72.5 % (42.0-75.0); Mean Corpuscular HGB CONC 33.7 g/dL (32.0-36.0); Mean Corpuscular Hemoglobin 30.1 pg (27.0-31.0); Mean Corpuscular Volume 89.4 fL (78.0-98.0); Mean Platelet Volume 11.4 fL (7.4-10.4); Platelet Count 178 thou/uL (130-400); RBC Distribution Width 12.4 % (11.5-14.5); Red Blood Cell (RBC) Count 4.64 mill/uL (4.20-5.40); White Blood Cell (WBC) Count 15.2 thou/uL (4.8-10.8)
[2020-07-31 16:08] LABS: ALT (SGPT) 22 U/L (8-55); AST (SGOT) 15 U/L (5-34); Albumin 3.3 g/dL (3.5-5.0); Alkaline Phosphatase 150 U/L (40-110); Anion Gap 15 mmol/L (10-20); BUN (Urea Nitrogen) 10 mg/dL (7.0-18.7); Bilirubin, Total 0.4 mg/dL (0.2-1.2); Calc. Creatinine Clearance 159 mL/min (70-130); Calcium 9.3 mg/dL (7.8-10.44); Carbon Dioxide 22 mmol/L (22-29); Chloride 105 mmol/L (98-107); Estimated GFR-MDRD Greater than 90; Globulin 3.4 g/dL (2.4-3.5); Glucose 78 mg/dL (70-105); Potassium 4.1 mmol/L (3.5-5.1); Protein, Total 6.7 g/dL (6.0-8.3); Sodium 138 mmol/L (136-145); Uric Acid 5.6 mg/dL (2.6-6.0)
--- NOTE | 2020-07-31 17:33 | PDOC.LDPN ---
Labor & Delivery Progress Note - Subjective Subjective: comfortable - Objective Vital signs reviewed and normal: yes General: NAD SVE: 550/-1 FHT: category 1 [place] contractions every: q2min AROM: clear fluid -: A/P: 1) IUP@ 34.1 weeks undergoing induction for IUGR, oligo and pregestational DM- Pitocin @8mu; progressing. AROM- clear fluids. Will plan to place IUPC. 2) Pregestational DM- BG downtrending; clear liquids given; will recheck in 1 hour; if still low, may need to change IVF to include D5. 3) Elevated BP- Pre-eclampsia labs drawn; normal platelets and LFTs; Urine prot/Cr pending. Continue to monitor. No severe range pressures or symptoms.
[2020-07-31] MEDS ORDERED: Fentanyl 4 mcg/Bup 0.1% Cadd 100 ML ONE (19:28)
--- NOTE | 2020-07-31 19:42 | PDOC.LDPN ---
Labor & Delivery Progress Note - Subjective Subjective: painful contractions - Objective Abnormal vital signs: one severe pressure of 167/105 followed by 156/103 less than 15 min later General: breathing through contractions Dilation: 6 Effacement: 50% Station: -1 FHT: category 1, early decelerations, variability present [place] contractions every: 1-3 min AROM: clear fluid -: sIUP - mIOL 2/2 oligohydramnios and IUGR - History of low ROSA, MFM found IUGR- hadlock 3%, recommended IOL on 07/30 - SVE 12/27/-2, anterior, soft @ 0230; 4-/-2, soft @ 1500; /1 @ 1715, AROM; /1 @ 1915 - FHT: 140, cat 1, early decels, moderate variability - Epidural ordered, will give stadol in interim - will likely place IUPC after epidural Elevated BP readings without diagnosis of Pre E or gestational HTN - pre-e labs ordered; CBC and CMP normal; urine pending - one severe range pressure of 167/105 @ 1910 with next reading of 156/103 15 minutes later; first severe, will monitor and treat if needed - denies RODRIGUEZ, chest pain, RUQ pain, SOB, blurry vision , 34wks - recent hospitalization given 2 doses betamethasone - GBS unknown; s/p GBS ppx Pregestational diabetes - most recent A1c 5.2, takes 8u insulin with meals and 25u lantus at bedtime; home meds DC'd due to normal blood glucose - accuchecks changed to q2hr now that pit has been started. Sugars have been well controlled. Last sugar of - will continue to monitor
[2020-07-31] MEDS ORDERED: Bupivacaine 0.5% 10 ML VIAL ONE (19:55)
[2020-07-31] MEDS ORDERED: Fentanyl 100 MCG/2 ML VIAL ONE (19:55)
[2020-07-31] MEDS ORDERED: Lactated Ringer's 500 ML IV PRN (20:51)
[2020-07-31] MEDS ORDERED: EPHEDRINE 25 MG/5 ML SYRINGE SLOW IVP PRN (20:51)
[2020-07-31] MEDS ORDERED: Promethazine HCl 25 MG/ML VIAL IM PRN (20:51)
[2020-07-31] MEDS ORDERED: diphenhydrAMINE 50 MG/ML VIAL IVP PRN (20:51)
[2020-07-31] MEDS ORDERED: Naloxone HCl 0.4 mg/ml Vial IVP PRN ×2 (20:51)
[2020-07-31] MEDS ORDERED: Ondansetron PF 4 MG/2 ML Vial IVP PRN (20:51)
[2020-07-31] MEDS ORDERED: Acetaminophen 325 MG TAB PO PRN (20:51)
[2020-07-31] MEDS ORDERED: Fentanyl 100 MCG/2 ML VIAL I-THECAL SCH (20:51)
[2020-07-31] MEDS ORDERED: Communication Order-Pharmacy FS SCH (21:00)
[2020-07-31] MEDS ORDERED: Insulin Glargine 25 UNITS in Pre-Filled Syringe 1 EACH SC SCH (21:00)
[2020-07-31] MEDS ORDERED: Fentanyl 4 mcg/Bupivacaine 0.1% Cassette 100 ML EPIDURAL SCH (21:00)
--- NOTE | 2020-07-31 21:15 | PDOC.LDPN ---
Labor & Delivery Progress Note - Subjective Subjective: comfortable - Objective Abnormal vital signs: Hypertensive 141/91, no more severes General: NAD, resting Dilation: 6 Effacement: 75% Station: -1 FHT: category 1, early decelerations, variability present [place] contractions every: 2 min AROM: clear fluid IUPC placed: yes -: sIUP - mIOL 2/ oligohydramnios and IUGR - History of low ROSA, MFM found IUGR- hadlock 3%, recommended IOL on 07/30 - SVE 12/27/-2, anterior, soft @ 0230; 4-/-2, soft @ 1500; /-1 @ 1715, AROM; /-1 @ 1914; /-1 @ 2049 - IUPC placed at - MVUs of 235 - FHT: 140, cat 1, early decels, moderate variability - Epidural ~ 2000 - pit at 8 Gestational HTN - pre-e labs ordered and normal (Plts: 178; AST/ALT: 15/; Pr:Cr ratio: <0.29) - one severe range pressure of 167/105 @ 1910 with next reading of 156/103 15 minutes later; no other severes at this time - pressures since last check in 130-140s/80-90s - denies RODRIGUEZ, chest pain, RUQ pain, SOB, blurry vision , 34wks - recent hospitalization given 2 doses betamethasone - GBS unknown; s/p GBS ppx Pregestational diabetes - most recent A1c 5.2, takes 8u insulin with meals and 25u lantus at bedtime; home meds DC'd due to normal blood glucose - accuchecks changed to q2hr now that pit has been started. Sugars have been well controlled. Last sugar of 90 - will continue to monitor
[2020-07-31] MEDS ORDERED: Insulin Glargine 12 UNITS in Pre-Filled Syringe 1 EACH SC SCH (22:00)
[2020-07-31] MEDS ORDERED: Dextrose 5%-Lactated Ringers 1,000 ML IV SCH (22:45)
[2020-07-31] MEDS ORDERED: Labetalol HCl 100 MG/20 ML VIAL ONE (23:08)
[2020-07-31] MEDS ORDERED: Magnesium Sulfate 20 gm/500 ml 20 GM/500 ML BAG ONE (23:10)
[2020-07-31] MEDS ORDERED: Labetalol HCl 100 MG/20 ML VIAL SLOW IVP PRN (23:11)
[2020-07-31] MEDS ORDERED: Calcium Gluc 4.6 MEQ/10 ML (100 MG/ML) SLOW IVP PRN (23:12)
--- NOTE | 2020-07-31 23:17 | PDOC.LDPN ---
Labor & Delivery Progress Note - Subjective Subjective: comfortable - Objective Abnormal vital signs: Severes of 175/94 and 169/90 General: NAD, resting Dilation: Complete Effacement: 100% Station: 1+ FHT: category 1, early decelerations, variability present [place] contractions every: 2 min AROM: clear fluid IUPC placed: yes -: sIUP - mIOL 2/ oligohydramnios and IUGR - History of low ROSA, MFM found IUGR- hadlock 3%, recommended IOL on 07/30 - SVE 12/27/-2, anterior, soft @ 0230; 4-/-2, soft @ 1500; /-1 @ 1715, AROM; /-1 @ 1915; /-1 @ 2049; Complete @ 2300 - IUPC placed at 2014 - FHT: 135, cat 1, early decels, moderate variability - Epidural ~ 2000 - pit at 8 Pre-E - pre-e labs ordered and normal (Plts: 178; AST/ALT: 15/22; Pr:Cr ratio: <0.29) - > 2 severe range pressures; latest pressures of 175/94 and 169/90 - will give 20 mg of labetalol and start on mag - denies RODRIGUEZ, chest pain, RUQ pain, SOB, blurry vision , 34wks - recent hospitalization given 2 doses betamethasone - GBS unknown; s/p GBS ppx pregestational Dm: - home meds have not been DC'd; scheduled to receive home 25 units of Lantus at bedtime - last blood sugar of 63, started on D5LR @ 125 - due to low/normal sugars today and last sugar being 77, given half of home dose (12 units) while on D5LR - Q1hr checks
[2020-07-31] MEDS: Magnesium Sulfate 20 gm/500 ml 20 GM/500 ML BAG IVPB SCH (23:21)
[2020-07-31] MEDS ORDERED: Magnesium Sulfate 20 GM/WATER 500 ML BAG IVPB SCH (23:30)
--- NOTE | 2020-08-01 00:40 | PDOC.OPDEL ---
OB Operative/Delivery Note Delivery Dr/Surgeon: Neha/ Pre-Delivery Diagnosis: medically indicated induction Procedure/Post Delivery Dx: spontaneous vaginal delivery Weeks gestation: 34 (34.2) Anesthesia: epidural - Additional Findings/Plan Placenta delivered: spontaneous Repaired Obstetrical Laceration: none Compilations/Other Findings: Delivering Physician: Neha Attending: Procedure: Spontaneous Vaginal Delivery Anesthesia: epidural QBL: 208 ml Pre-op Diagnosis: 1. intrauterine in labor 2. Oligohydramnios 3. IUGR 4. Pre-E with severe features 5. Pregestational Diabetes Post-op Diagnosis: 1. intrauterine , delivered 2. same as above Indications: A 24y/o female presents to L&D for medical induction due to oligohydramnios and IUGR. Delivery Note: This is 24yo F G1 now P0101 @ 34.2 wks who delivered a viable F infant at 0020. Following an antepartum course complicated by the diagnosis of Pre-E with severe features (started on Mag), a vigorous F was delivered over an intact perineum in the occipitoanterior position. Anterior Shoulder and then remainder of the body delivered. A nuchal cord was easily reduced. The head was held down. Cord clamped and cut and cord blood collected. The infant was handed over to the team. Cord gas was also collected. Placenta delivered intact in the [place] with a 3 vessel cord noted. Placenta sent to pathology. Fundal massage was performed and the fundus was firm. The cervix and vagina were inspected and found to be free of lacerations. Infant went to NICU for further care. Apgars were 7/9 at 1 & 5 minutes, respectively. Patient tolerated delivery well and will remain on labor and delivery for 24 hours of mag treatment.
[2020-08-01 00:41] LABS: Actual Bicarbonate (HCO3a) 25.4 mEq/L (22-28); Base Excess (BEa) -3.8 mEq/L (-2.0 to +3.0)
[2020-08-01 00:43] LABS: Actual Bicarbonate (HCO3v) 22 mEq/L (22-28); Base Excess -4.1 mEq/L (-2.0 to +3.0); pH (Cord, venous) 7.33 (7.32-7.43)
--- NOTE | 2020-08-01 05:45 | PDOC.BPN ---
- Brief Progress Note Encounter Date: 08/01/20 Encounter Time: 04:00 S: Resting comfortably in bed. Reports that she is hungry and sleepy. Denies RODRIGUEZ, SOB, Chest pain, RUQ pain, blurry vision. O: BP: 115/67 P: 84 RR: 18 T: 98.5; Normotensive since delivery Urine output: > 400 cc from 0000 to 0400 General Appearance: Sleeping comfortably in bed; easily arousable, answers questions Cardiovascular: RRR Lungs: CTAB, no respiratory distress Abdomen: nontender Extremities: DTRs +1, no edema A/P: 24 year old G1 now P1 at 34.2 gestational age, on MgSO4 for Preeclampsia with severe features. No signs/symptoms of Mg toxicity. Will continue mag for total of 24 hrs (end time ~ 2330 on 07/01), next mag check ~0830. For her pregestational Dm, q4hr checks. Stopped D5LR after delivery. Patient has clear liquid diet including juice ordered. Will continue to monitor. Last sugar of 80
[2020-08-01] MEDS: Misoprostol 100 MCG TAB VAG SCH ×2 (06:09→06:10)
[2020-08-01] MEDS: Penicillin G 2.5 MILL.units 2.5 MILL.UNITS in Premix Bag 1 BAG IVPB SCH ×2 (06:10→06:11)
[2020-08-01] MEDS: Lactated Ringer's 1,000 ML IV SCH ×2 (06:11→16:54)
[2020-08-01] MEDS: Magnesium Sulfate 20 gm/500 ml 20 GM/500 ML BAG IVPB SCH ×2 (07:20→16:53)
--- NOTE | 2020-08-01 09:35 | PDOC.BPN ---
<Kailey Fay - Last Filed: 08/01/20 09:33> - Brief Progress Note Encounter Date: 08/01/20 Encounter Time: 09:31 S: Resting comfortably in bed. Reports that she is hungry and sleepy. Denies RODRIGUEZ, SOB, Chest pain, RUQ pain, blurry vision. C/o mild dizziness. O: BP: Systolic 130s. Normotensive since delivery Urine output: >200mL / hour. Total -2310 since delivery. General Appearance: Sleeping comfortably in bed; easily arousable, answers questions Cardiovascular: RRR Lungs: CTAB, no respiratory distress Abdomen: nontender Extremities: DTRs diminished. Checking mag level now. A/P: 24 year old G1 now P1 at 34.2 gestational age, on MgSO4 for Preeclampsia with severe features. Will continue mag for total of 24 hrs (end time ~ 2330 on 07/01), next mag check 1330 Will upgrade diet to full liquid Hussain FISHMAN PGY2 <Kirti Verduzco - Last Filed: 08/01/20 11:13> Addendum - Attending - Attending Attestation Date/Time: 08/01/20 1109 I personally evaluated the patient and discussed the management with Dr. Fay I agree with the History, Examination, Assessment and Plan documented above with any addition or exceptions noted below - Patient sitting up; pumping breast milk. Minimal pain. Tolerating clears. Afebrile VSS. A/P: 1) PPD#0 - s/p - continue current care. 2) Gestational HTN with severe pressures- continue magnesium for 24 hours. Good urine output. BP improved.
--- NOTE | 2020-08-01 13:46 | PDOC.BPN ---
- Brief Progress Note S: Resting comfortably in bed. Patient just ate full liquid lunch tray without any issues. Endorses mild RODRIGUEZ. Denies SOB, Chest pain, RUQ pain, blurry vision, LE edema. Endorses mild dizziness. O: BP: Systolic 110-130s/80s. Normotensive since delivery Urine output: >300mL / hour. Total >-2500 since delivery. General Appearance: resting comfortably in bed; easily arousable, answers questions Cardiovascular: RRR Lungs: CTAB, no respiratory distress Abdomen: nontender Extremities: DTRs 1+. A/P: 24 year old G1 now P1 at 34.2 gestational age who delivered viable F on 07/31 @ 0020 via with no lacs. On MgSO4 for Preeclampsia with severe features. BPs got as high as 169/90 prior to delivery. Will continue mag for total of 24 hrs (end time ~ 2330 on 07/01), next mag check ~0397-0197. Mg level of 4. Normal exam. UOP adequate. Continue to monitor. Full liquid diet. Last sugar 88. Tylenol PRN for headache.
--- NOTE | 2020-08-01 18:28 | PDOC.BPN ---
- Brief Progress Note Encounter Date: 08/01/20 Encounter Time: 18:00 S: Resting comfortably in bed. Reports that headache from earlier has improved. Denies SOB, Chest pain, RUQ pain, blurry vision, LE edema. O: BP: 119-153/69-92; no severe range pressures Urine output: >300mL / hour General Appearance: resting comfortably in bed; easily arousable, answers questions Cardiovascular: RRR Lungs: CTAB, no respiratory distress Abdomen: ATTP, fundus firm and below umbilicus Extremities: DTRs 1+. A/P: 24 year old G1 now P1 at 34.2 gestational age who delivered viable F on 07/31 @ 0020 via with no lacs. On MgSO4 for Preeclampsia with severe features. BPs got as high as 169/90 prior to delivery. Will continue mag for total of 24 hrs (end time ~ 2330 on 07/01), next mag check just prior to discontinuation ~2200. Mg level of 4. Normal exam. UOP adequate. Continue to monitor. Full liquid diet. Tylenol PRN for headache.
[2020-08-01] MEDS ORDERED: Insulin Glargine 12 UNITS in Pre-Filled Syringe 1 EACH SC SCH (21:00)
--- NOTE | 2020-08-01 22:44 | PDOC.BPN ---
- Brief Progress Note Encounter Date: 08/01/20 Encounter Time: 22:00 S: Resting comfortably in bed. Reports headache. Denies SOB, Chest pain, RUQ pain, blurry vision, LE edema. O: BP: 110-130s/80s; normotensive since last check Urine output: >1140 over last 4 hours General Appearance: resting comfortably in bed; easily arousable, answers questions Cardiovascular: RRR Lungs: CTAB, no respiratory distress Abdomen: ATTP, fundus firm and below umbilicus Extremities: DTRs 1+, no clonus A/P: 24 year old G1 now P1 at 34.2 gestational age who delivered viable F on 07/31 @ 0020 via with no lacs. On MgSO4 for Preeclampsia with severe features. BPs got as high as 169/90 prior to delivery. Will continue mag for total of 24 hrs. Will end mag a little after midnight on 08/02. Mg level of 4. Normal exam. UOP adequate. Continue to monitor. Tolerating full liquid diet. Tylenol PRN for headache.
[2020-08-02] MEDS ORDERED: Lanolin Ointment 7 GM TUBE TOP PRN (04:44)
[2020-08-02] MEDS ORDERED: Bisacodyl 10 MG SUPP PR PRN (04:44)
[2020-08-02] MEDS ORDERED: hydrALAZINE 20 MG/ML VIAL SLOW IVP PRN (04:44)
[2020-08-02] MEDS ORDERED: Milk Of Magnesia 30 ML UDCUP PO PRN (04:44)
--- NOTE | 2020-08-02 07:24 | PDOC.PP ---
Post Progress Note Post Day #: 1 Subjective: Pain well controlled. Mg stopped around 1am. BPs stable. Plans to eat breakfast this AM. Lochia less than a period. Mckinney cath out and has walked to bathroom. Denies issues with urination, passing gas. Breast feeding. RODRIGUEZ and dizziness greatly improved. Denies SOB, edema. PO intake tolerated: yes Flatus: yes Ambulation: yes Weight Weight 78.471 kg - Physical Examination General: NAD Cardiovascular: RRR Respiratory: clear to auscultation bilaterally, non-labored breathing Abdominal: + bowel sounds, appropriately TTP Fundus firm & at: umbilicus Neurological: no gross focal deficits Psychiatric: A&Ox3, normal affect Result Diagrams: 07/31/20 15:31 07/31/20 15:31 Additional Labs: Post Labs Hep Bs Antigen Non-Reactive S/CO (NonReactive) 07/30/20 18:49 Blood Type O POSITIVE 07/30/20 19:18 - Assessment/Plan sIUP, delivered - Meeting PP milestones - - Likely d/c home tomorrow as long as BPs controlled Pre-E - Mg stopped around 0100, no severe range pressures - Can advance diet this AM. Move to [place]. - Will need to follow up at [facility] in 1wk. Needs BP cuff to start checking BID at home. 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 Some elevated glucoses. Consider starting Metformin at discharge. Will need to stop prior to preforming 2hr GTT at 6wks. Addendum - Attending - Attending Attestation Date/Time: 08/02/20 1128 I personally evaluated the patient and discussed the management with Dr. Franklin I agree with the History, Examination, Assessment and Plan documented above with any addition or exceptions noted below- Patient without complaints. RODRIGUEZ resolved. No further dizziness. Afebrile VSS. A/P: 1) PPD#2 s/p - continue routine care. 2) Pregestational DM - BG doing well. Continue to monitor. May start metformin based on BG readings. 3) Pre-eclampsia with severe features- BP much improved; off magnesium since 1 AM- continue to monitor BP; if remains stable, plan to d/c home tomorrow.
[2020-08-02] MEDS: Ibuprofen 800 MG TAB PO SCH ×3 (07:40→22:38)
[2020-08-02] MEDS: Docusate Calcium (SURFAK) 240 MG CAP PO SCH ×2 (09:56→22:38)
[2020-08-02] MEDS: Ferrous Sulfate 325 MG TAB PO SCH ×2 (09:56→17:58)
[2020-08-02] MEDS: Prenatal Vitamin 1 TAB PO SCH (09:56)
[2020-08-02] MEDS ORDERED: FLU VACC QS2020-21(6MOS UP)/PF 60 MCG/0.5 ML SYRINGE IM ONE (10:00)
[2020-08-02] MEDS: Lactated Ringer's 1,000 ML IV SCH ×2 (15:39→15:41)
[2020-08-02] MEDS: Misoprostol 100 MCG TAB VAG SCH (15:40)
[2020-08-02] MEDS: Penicillin G 2.5 MILL.units 2.5 MILL.UNITS in Premix Bag 1 BAG IVPB SCH (15:40)
[2020-08-03] MEDS: Ibuprofen 800 MG TAB PO SCH (05:47)
--- NOTE | 2020-08-03 07:38 | PDOC.PP ---
Post Progress Note Post Day #: 2 Subjective: Pain well controlled. Ambulating, tolerating PO. Breast feeding going well. Lochia less than period. Baby still in NICU. PO intake tolerated: yes Flatus: yes Ambulation: yes Vital Signs (12 hours) Temp Pulse Resp BP 08/03/20 04:45 98.5 F 75 14 118/76 08/02/20 23:40 98.3 F 75 14 123/79 08/02/20 20:30 98.7 F 92 14 121/71 Weight Weight 78.471 kg - Physical Examination General: NAD Cardiovascular: no m/r/g, RRR Respiratory: clear to auscultation bilaterally, non-labored breathing Abdominal: + bowel sounds, appropriately TTP Fundus firm & at: below umbilicus Neurological: no gross focal deficits Psychiatric: A&Ox3, normal affect Result Diagrams: 07/31/20 15:31 07/31/20 15:31 Additional Labs: Post Labs Hep Bs Antigen Non-Reactive S/CO (NonReactive) 07/30/20 18:49 Blood Type O POSITIVE 07/30/20 19:18 - Assessment/Plan sIUP, delivered - Meeting PP milestones - (pumping) - Contraception: OCPs - Likely d/c home later today Pre-E - s/p 24hrs Mg, has been off >24hrs with no severe range pressures - Will need to follow up at [facility] in 1wk. Needs BP cuff to start checking BID at home. 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 Elevated glucose. Start Metformin at discharge. Will need to stop prior to preforming 2hr GTT at 6wks. Was diagnosed early in p regnancy with A1c- no known dx prior to . Addendum - Attending - Attending Attestation Date/Time: 08/03/20 1032 I personally evaluated the patient and discussed the management with Dr. Franklin I agree with the History, Examination, Assessment and Plan documented above with any addition or exceptions noted below - Patient without complaints. Ambulating/voiding. Denies any RODRIGUEZ. Afebrile VSS. A/P: 1) PPD#2- doing well. Plan to d/c home today. 2) Pregestational DM- will start on metformin. 2) Pre- eclamosia with severe features- BP now normal; f/u in next week at [facility].
[2020-08-03 07:48] VITALS: BP 120/78; TEMP 97.9
[2020-08-03] MEDS: Ferrous Sulfate 325 MG TAB PO SCH (09:26)
[2020-08-03] MEDS: Prenatal Vitamin 1 TAB PO SCH (09:26)
[2020-08-03] MEDS: Docusate Calcium (SURFAK) 240 MG CAP PO SCH (09:26)
== END 2020-08-03 11:30 | disposition home or self-care (01) | DRG 805 ==
LOC: L&D/OP 17:51 → L&D 17:52 → 3SW 08-02 09:17
PROVIDERS: ADMIT Family Medicine; ATTEND Family Medicine
PROC: 3E0P7VZ Introduction of Hormone into Female Reproductive, Via Natural or Artificial Opening (ICD-10-PCS; 2020-07-30)
PROC: 0U7C7ZZ Dilation of Cervix, Via Natural or Artificial Opening (ICD-10-PCS; 2020-07-30)
PROC: 10907ZC Drainage of Amniotic Fluid, Therapeutic from Products of Conception, Via Natural or Artificial Opening (ICD-10-PCS; 2020-07-31)
PROC: 10H07YZ Insertion of Other Device into Products of Conception, Via Natural or Artificial Opening (ICD-10-PCS; 2020-07-31)
PROC: 10E0XZZ Delivery of Products of Conception, External Approach (ICD-10-PCS; principal; 2020-08-01)
DX: O41.03X0 Oligohydramnios, third trimester, not applicable or unspecified (principal); O24.32 Unspecified pre-existing diabetes mellitus in childbirth; Z37.0 Single live birth; Z3A.34 34 weeks gestation of pregnancy; O36.5930 Maternal care for other known or suspected poor fetal growth, third trimester, not applicable or unspecified; Z20.828 Contact with and (suspected) exposure to other viral communicable diseases; E11.65 Type 2 diabetes mellitus with hyperglycemia; O13.4 Gestational [pregnancy-induced] hypertension without significant proteinuria, complicating childbirth; O69.81X0 Labor and delivery complicated by cord around neck, without compression, not applicable or unspecified; O76 Abnormality in fetal heart rate and rhythm complicating labor and delivery; E11.649 Type 2 diabetes mellitus with hypoglycemia without coma; O14.14 Severe pre-eclampsia complicating childbirth; Z79.4 Long term (current) use of insulin; Z79.82 Long term (current) use of aspirin; Z28.21 Immunization not carried out because of patient refusal
CPT/HCPCS: 36415; 36416; 51702; 80053; 82570; 82805; 83735; 84156; 84550; 85025; 85027; 86780; 86850; 86900; 86901; 87081; 87340; 87635; 88307; J0595; J1815; J2540; J2590; J3010; J3475; J3490; U0003